=== PATIENT | male | born 1970 | race African-American/Black ===

== ENCOUNTER 2025-06-07 13:15 | Outpatient (CLI) | payer OTHER | END 2025-06-07 13:16 | disposition home or self-care (01) | LOC: CSHRAD 13:15 | PROVIDERS: ATTEND Nurse Practitioner Family | DX: M50.323 Other cervical disc degeneration at C6-C7 level (principal); Z87.828 Personal history of other (healed) physical injury and trauma; Z98.890 Other specified postprocedural states; M79.5 Residual foreign body in soft tissue | CPT/HCPCS: 72040 ==